=== PATIENT | male | born 1990 | race Caucasian/White ===

== ENCOUNTER → 2024-01-01 | Outpatient (CLI) | payer BC ==
[2024-01-01 10:37] LABS: Estradiol 36.4 pg/mL
[2024-01-01 11:33] LABS: Luteinizing Hormone 3.5 mIU/mL; Prolactin 11.6 ng/mL (2.100-17.000)
== END | disposition home or self-care (01) ==
LOC: LABWHC1 06:53
PROVIDERS: ATTEND Urology
DX: I86.1 Scrotal varices (principal)
CPT/HCPCS: 36415; 82040; 82670; 83001; 83002; 84146; 84270; 84403